=== PATIENT | male | born 1975 | race Two or more races ===

== ENCOUNTER → 2023-07-10 | Outpatient (CLI) | payer OTHER, SELFPAY ==
[2023-07-10 09:27] LABS: Hematocrit 43.4 % (40-54); Hemoglobin 14.2 g/dL (13.0-16.5)
[2023-07-11 06:44] LABS: ALB/GLOB Ratio 1.2 RATIO (0.9-2.4); AST(SGOT) 18 U/L (15-37); Alanine Aminotransfer ALT/SGPT 31 U/L (16-61); Albumin, Serum 4.3 g/dL (3.2-5.0); Alkaline Phosphatase 51 U/L (45-117); Anion Gap 6 (5-15); BUN 19 mg/dL (7-18); BUN/Creat Ratio 16.7 RATIO (10-20); Calcium,Total 9.2 mg/dL (8.5-10.1); Chloride 106 mmol/L (98-107); Cholesterol 181 mg/dL (200); Creatinine, Serum 1.14 mg/dL (0.70-1.30); EST Glomerular Filtration Rate 74 mL/min (>60); Est Glom Filt Rate - Afr Amer 89 mL/min (>60); Estradiol 15.1 pg/mL; Globulin 3.6 g/dL (2.2-4.2); Glucose 111 mg/dL (74-106); High Density Lipoprotein 64 mg/dL; Luteinizing Hormone 2.6 mIU/mL; PSA,Total - Annual Screen 0.58 ng/mL (0.00-4.00); Potassium 4.2 mmol/L (3.5-5.1); Prolactin 5.7 ng/mL; Protein, Total 7.9 g/dL (6.4-8.2); Sodium Level 140 mmol/L (136-145); Thyroid Stim Hormone (TSH) 1.02 uIU/mL (0.358-3.74); Triglycerides 66 mg/dL; Very Low Density Lipoprotein 13 mg/dL (5-40)
[2023-07-15 14:09] LABS: Testosterone, % Free 2.56 % (1.50-4.20); Testosterone, Free 7.94 ng/dL (5.00-21.00); Testosterone, Total 310 ng/dL (264-916)
== END | disposition home or self-care (01) ==
LOC: LAB 08:44 → LABSPEC 08:53
PROVIDERS: Referring Provider Registered Nurse; Visit Provider Registered Nurse
DX: Z00.00 Encounter for general adult medical examination without abnormal findings (principal); E29.1 Testicular hypofunction; R53.83 Other fatigue; R97.20 Elevated prostate specific antigen [PSA]; R68.82 Decreased libido; R63.5 Abnormal weight gain; R35.0 Frequency of micturition; R39.16 Straining to void; Z12.5 Encounter for screening for malignant neoplasm of prostate
CPT/HCPCS: 80053; 80061; 82627; 82670; 83001; 83002; 84146; 84153; 84270; 84402; 84403; 84443; 85014; 85018; 82626; G0103

== ENCOUNTER → 2024-01-04 11:19 | Outpatient (REF) | payer OTHER, SELFPAY ==
[2024-01-04 11:30] LABS: Hematocrit 46.3 % (40-54)
[2024-01-05 22:49] LABS: ALB/GLOB Ratio 1.1 RATIO (0.9-2.4); AST(SGOT) 27 U/L (15-37); Alanine Aminotransfer ALT/SGPT 32 U/L (16-61); Albumin, Serum 3.8 g/dL (3.2-5.0); Alkaline Phosphatase 56 U/L (45-117); Anion Gap 5 (5-15); BUN 24 mg/dL (7-18); BUN/Creat Ratio 18.8 RATIO (10-20); Chloride 105 mmol/L (98-107); Cholesterol 151 mg/dL (200); Creatinine, Serum 1.28 mg/dL (0.70-1.30); EST Glomerular Filtration Rate 64 mL/min (>60); Est Glom Filt Rate - Afr Amer 78 mL/min (>60); Estradiol 22.2 pg/mL; Follicle Stimulating Hormone < 0.2 mIU/mL; Globulin 3.6 g/dL (2.2-4.2); Glucose 98 mg/dL (74-106); High Density Lipoprotein 47 mg/dL; Luteinizing Hormone < 0.2 mIU/mL; PSA,Total - Annual Screen 0.98 ng/mL (0.00-4.00); Potassium 3.9 mmol/L (3.5-5.1); Prolactin 6.3 ng/mL; Protein, Total 7.4 g/dL (6.4-8.2); Sodium Level 138 mmol/L (136-145); Thyroid Stim Hormone (TSH) 1.01 uIU/mL (0.358-3.74); Triglycerides 57 mg/dL; Very Low Density Lipoprotein 11 mg/dL (5-40)
[2024-01-13 09:09] LABS: Sex Hormone-binding Globulin 15.8 nmol/L (16.5-55.9); Testosterone, Total 589 ng/dL (264-916)
== END ==
LOC: LABSPEC 11:19
PROVIDERS: Visit Provider Registered Nurse
DX: E29.1 Testicular hypofunction (principal); R53.83 Other fatigue; Z12.5 Encounter for screening for malignant neoplasm of prostate; R68.82 Decreased libido; R63.5 Abnormal weight gain; R35.89 Other polyuria; R39.16 Straining to void
CPT/HCPCS: 80053; 80061; 82627; 82670; 83001; 83002; 84146; 84153; 84270; 84402; 84403; 84443; 85014; 85018; 82626; G0103

== ENCOUNTER → 2024-10-14 | Outpatient (CLI) | payer OTHER, SELFPAY ==
[2024-10-14 09:30] LABS: Hemoglobin 15.9 g/dL (13.0-16.5)
[2024-10-14 10:17] LABS: ALB/GLOB Ratio 1.1 RATIO (0.9-2.4); AST(SGOT) 20 U/L (15-37); Alanine Aminotransfer ALT/SGPT 32 U/L (16-61); Alkaline Phosphatase 68 U/L (45-117); Anion Gap 4 (5-15); BUN 21 mg/dL (7-18); BUN/Creat Ratio 17.8 RATIO (10-20); Calcium,Total 9.4 mg/dL (8.5-10.1); Chloride 104 mmol/L (98-107); Cholesterol 182 mg/dL (200); Creatinine, Serum 1.18 mg/dL (0.70-1.30); EST Glomerular Filtration Rate 70 mL/min (>60); Est Glom Filt Rate - Afr Amer 85 mL/min (>60); Estradiol 79.9 pg/mL; Follicle Stimulating Hormone < 0.2 mIU/mL; Globulin 3.7 g/dL (2.2-4.2); Glucose 93 mg/dL (74-106); High Density Lipoprotein 46 mg/dL; Luteinizing Hormone < 0.2 mIU/mL; PSA,Total - Annual Screen 0.52 ng/mL (0.00-4.00); Potassium 4.3 mmol/L (3.5-5.1); Protein, Total 7.7 g/dL (6.4-8.2); Sodium Level 137 mmol/L (136-145); Triglycerides 74 mg/dL; Very Low Density Lipoprotein 15 mg/dL (5-40)
[2024-10-18 10:08] LABS: PROLACTIN 6.7 ng/mL (3.9-22.7); Sex Hormone-binding Globulin 23.7 nmol/L (16.5-55.9); Testosterone, % Free 4.38 % (1.50-4.20); Testosterone, Free >65.70 ng/dL (5.00-21.00); Testosterone, Total > 1500 ng/dL (264-916)
== END | disposition home or self-care (01) ==
LOC: LABSPEC 09:12
PROVIDERS: Referring Provider Registered Nurse; Visit Provider Registered Nurse
DX: E29.1 Testicular hypofunction (principal); R53.83 Other fatigue; Z12.5 Encounter for screening for malignant neoplasm of prostate; R68.82 Decreased libido; R63.5 Abnormal weight gain; R39.16 Straining to void; R35.0 Frequency of micturition
CPT/HCPCS: 80053; 80061; 82627; 82670; 83001; 83002; 84146; 84153; 84270; 84402; 84403; 84443; 85014; 85018; 82626; G0103

== ENCOUNTER → 2025-04-07 | Outpatient (CLI) | payer OTHER, SELFPAY ==
[2025-04-07 12:16] LABS: Hematocrit 46.2 % (40-54); Hemoglobin 15.8 g/dL (13.0-16.5)
[2025-04-07 13:11] LABS: AST(SGOT) 26 U/L (<=37); Alanine Aminotransfer ALT/SGPT 24 U/L (<=46); Albumin, Serum 4.7 g/dL (3.5-5.0); Alkaline Phosphatase 58 U/L (40-129); Anion Gap 12 (5-15); BUN 18 mg/dL (4-19); BUN/Creat Ratio 14.7 RATIO (10-20); Calcium,Total 9.6 mg/dL (7.6-11.0); Carbon Dioxide 24.5 mmol/L (21.0-32.0); Chloride 102 mmol/L (98-108); Cholesterol 191 mg/dL (<=200); Globulin 2.9 g/dL (2.2-4.2); Glucose 90 mg/dL (70-99); Low Density Lipoprotein Calc. 123 mg/dL; Potassium 4.1 mmol/L (3.3-5.1); Triglycerides 82 mg/dL; Very Low Density Lipoprotein 16 mg/dL (5-40); cholesterol:hdl ratio screen 3.69
[2025-04-07 13:14] LABS: Follicle Stimulating Hormone < 0.3 mIU/mL; PSA,Total- Diagnostic 0.46 ng/mL (0.00-4.00)
== END | disposition home or self-care (01) ==
LOC: LABSPEC 11:49
PROVIDERS: Visit Provider Registered Nurse
DX: E29.1 Testicular hypofunction (principal); R53.83 Other fatigue; R68.82 Decreased libido; R35.0 Frequency of micturition; E78.9 Disorder of lipoprotein metabolism, unspecified
CPT/HCPCS: 80053; 80061; 82627; 82670; 83001; 83002; 84146; 84153; 84270; 84402; 84403; 84443; 85014; 85018; 82626